=== PATIENT | female | born 1945 | race Caucasian/White ===

== ENCOUNTER → 2017-07-03 | Outpatient (CLI) | payer OTHER | END | disposition home or self-care (01) | LOC: C.PAPS 16:25 | PROVIDERS: ATTEND Obstetrics & Gynecology | DX: Z12.4 Encounter for screening for malignant neoplasm of cervix (principal) ==

== ENCOUNTER → 2018-05-04 | Outpatient (CLI) | payer OTHER ==
--- NOTE | 2018-05-06 15:08 | MAMMOGRAPHY REPORT ---
BILATERAL DIGITAL SCREENING MAMMOGRAM TOMOSYNTHESIS WITH CAD: 05/04/2018 CLINICAL HISTORY: Routine screening. Patient has no complaints. TECHNIQUE: The study was acquired using full field digital technology and interpreted from soft copy. Breast tomosynthesis in addition to standard 2D mammography was performed. Current study was also ev aluated with a Computer Aided Detection (CAD) system. COMPARISON: Comparison is made to exams dated: 03/12/2016 mammogram, 02/20/2016 mammogram, 02/12/2016 ma mmogram, 08/14/2015 mammogram, 02/19/2015 mammogram, and 02/06/2015 mammogram - [facility]. BREAST COMPOSITION: There are scattered areas of fibroglandular density in both breasts. FINDINGS: There is a dumbbell-shaped biopsy marker clip in the upper outer middle one third of the ri ght breast, denoting an area of biopsy-proven papilloma. The patient underwent surgical excision but no papilloma was noted in the final surgical pathology and the biopsy clip remains in the breast. T herefore, additional spot magnification views are recommended in the right breast near the biopsy mar ker clip, to assess if any microcalcifications remain at the site of biopsy-proven papilloma. There is otherwise stable nodularity in both breasts. No other suspicious mass, architectural distort ion or definitive cluster of microcalcifications is seen. IMPRESSION: ACR BI-RADS CATEGORY 0: INCOMPLETE EVALUATION: NEED ADDITIONAL IMAGING EVALUATION The area near the biopsy marker clip in the right breast needs additional evaluation. The patient will be called to schedule an appointment. Some breast cancers are not detected with mammography. A negative mammographic report should not chitra y biopsy if a clinically suggestive mass is present. Cailin Crawford M.D. ay/:05/05/2018 15:47:41 Disability Aide: RT Clare(Re)(Tricia)(BD), [facility] letter sent: Addl Imaging 0 BI-RADS Code: ACR BI-RADS Category 0: Incomplete Evaluation: Need Additional Imaging Evaluation
== END | disposition home or self-care (01) ==
LOC: C.MAMM 14:52
PROVIDERS: ATTEND Obstetrics & Gynecology
DX: Z12.31 Encounter for screening mammogram for malignant neoplasm of breast (principal); R92.2 Inconclusive mammogram